=== PATIENT | female | born 1980 | race Caucasian/White ===

== ENCOUNTER 2018-10-24 17:10 | Inpatient (IN) | payer OTHER ==
[~2018-10-24] VITALS: Ht 152.4 cm; Wt 59.9 kg
[~2018-10-24 17:10] MED LIST: CLIN300C11 PO; HYDR-523 PO; METR250T PO
[2018-10-24] MEDS ORDERED: ACETAMINOPHEN 325MG TABLET PO ONE (23:45)
[2018-10-25 00:39] LABS: BASOPHILS % 0.5 % (0.0-2.0); LYMPHOCYTES % 24.5 % (20.0-50.0); MEAN CORPUSCULAR HEMOGLOBIN 20.9 pg (28.0-32.0); MEAN CORPUSCULAR VOLUME 67.8 fL (81.0-99.0); MEAN PLATELET VOLUME 7.4 fl (7.4-10.4); MONOCYTES % 8.7 % (2.0-8.0); NEUTROPHILS % 65.3 % (40.0-76.0); PLATELET 443 x1000/uL (130-400); RED BLOOD CELL COUNT 2.69 mill/uL (4.2-5.4); RED CELL DISTRIBUTION WIDTH 18.6 % (11.6-14.6)
[2018-10-25 00:48] LABS: HEMOGLOBIN. 5.6 g/dL (12.0-16.0)
[2018-10-25 00:49] LABS: HEMATOCRIT. 18.3 % (36.0-48.0); PLATELET ESTIMATE NORMAL
[2018-10-25 01:14] LABS: CHLORIDE 108 mEq/L (98-107)
[2018-10-25 01:28] LABS: HCG SCREEN NEGATIVE
[2018-10-25] MEDS ORDERED: ONDANSETRON HCL 4MG/2ML INJ IV ONE (02:30)
[2018-10-25 10:00] VITALS: BP 105/64
[2018-10-25 10:05] LABS: HEMATOCRIT 22.3 % (36.0-48.0); HEMOGLOBIN 7.2 g/dL (12.0-16.0); MEAN CORPUSCULAR HEMOGLOBIN 23.2 pg (28.0-32.0); MEAN CORPUSCULAR VOLUME 72.1 fL (81.0-99.0); PLATELET 414 x1000/uL (130-400); RED BLOOD CELL COUNT 3.09 mill/uL (4.2-5.4); RED CELL DISTRIBUTION WIDTH 21.4 % (11.6-14.6)
[2018-10-25] MEDS ORDERED: ACETAMINOPHEN 325MG TABLET PO PRN (11:00)
[2018-10-25] MEDS ORDERED: HYDROCODONE/ACETAMINOPHEN 5/325MG TABLET PO PRN (11:00)
[2018-10-25] MEDS ORDERED: ONDANSETRON HCL 4MG/2ML INJ IV PRN (11:00)
[2018-10-25] MEDS ORDERED: IPRATROPIUM/ALBUTEROL 0.5-3(2.5)MG/3ML NEB INH PRN (11:00)
[2018-10-25] MEDS ORDERED: CLONIDINE 0.1MG TABLET PO PRN (11:00)
[2018-10-25] MEDS ORDERED: DOCUSATE SODIUM 100MG CAPSULE PO PRN (11:00)
[2018-10-25 12:00] VITALS: BP 105/64
[2018-10-25 16:00] VITALS: BP 98/65
[2018-10-25] MEDS ORDERED: DIPHENHYDRAMINE 50MG/ML VIAL IV PRN (17:00)
[2018-10-25 17:52] LABS: PROTHROMBIN TIME 10.2 sec (9.1-11.1)
[2018-10-25 18:21] LABS: TOTAL IRON BINDING CAPACITY 376 ug/dL (250-450)
[2018-10-25 18:57] LABS: FOLIC ACID (FOLATE) SERUM >20 ng/mL ng/mL (>5.38)
[2018-10-25 19:09] LABS: VITAMIN B12 SERUM 544 pg/mL (211-911)
[2018-10-25 19:26] LABS: FERRITIN < 5 ng/mL (10-291)
[2018-10-25 20:00] VITALS: BP 104/68
[2018-10-25] MEDS ORDERED: BENZONATATE 100MG CAPSULE PO PRN (21:15)
[2018-10-26] VITALS (8 sets, daily range): BP systolic 92–119; BP diastolic 61–84
[2018-10-26] MEDS ORDERED: TRAMADOL 50MG TABLET PO PRN (09:30)
[2018-10-26 10:45] LABS: BASOPHILS % 0.8 % (0.0-2.0); EOSINOPHILS % 0.7 % (0.0-5.0); HEMATOCRIT. 26.7 % (36.0-48.0); HEMOGLOBIN. 8.7 g/dL (12.0-16.0); LYMPHOCYTES % 23.3 % (20.0-50.0); MEAN CORPUSCULAR HEMOGLOBIN 24.7 pg (28.0-32.0); MEAN CORPUSCULAR VOLUME 75.6 fL (81.0-99.0); MEAN PLATELET VOLUME 7.7 fl (7.4-10.4); MONOCYTES % 6.1 % (2.0-8.0); NEUTROPHILS % 69.1 % (40.0-76.0); PLATELET 420 x1000/uL (130-400); RED BLOOD CELL COUNT 3.53 mill/uL (4.2-5.4); RED CELL DISTRIBUTION WIDTH 23.6 % (11.6-14.6)
[2018-10-26 10:57] LABS: CHLORIDE 111 mEq/L (98-107)
[2018-10-26] MEDS ORDERED: ACET-2178 PO (12:35)
[2018-10-26] MEDS ORDERED: FERR325T6 MT (12:35)
[2018-10-26] MEDS ORDERED: TRAM50TA3 PO (12:35)
[2018-10-26 14:52] LABS: PLATELET ESTIMATE SLIGHTLY INCREASED
== END 2018-10-26 15:00 | disposition home or self-care (01) | DRG 532 ==
LOC: ER 17:10 → 6EST 10-25 01:37 → CANRESERV 10-25 07:50 → ENRESERV 10-25 07:50
PROVIDERS: ADMIT Internal Medicine; ATTEND Internal Medicine
PROC: 30233N1 Transfusion of Nonautologous Red Blood Cells into Peripheral Vein, Percutaneous Approach (ICD-10-PCS; principal; 2018-10-25)
DX: N93.8 Other specified abnormal uterine and vaginal bleeding (principal); E44.1 Mild protein-calorie malnutrition; E87.8 Other disorders of electrolyte and fluid balance, not elsewhere classified; D25.9 Leiomyoma of uterus, unspecified; D64.9 Anemia, unspecified; N93.9 Abnormal uterine and vaginal bleeding, unspecified; F17.200 Nicotine dependence, unspecified, uncomplicated; Z90.49 Acquired absence of other specified parts of digestive tract; Z98.891 History of uterine scar from previous surgery; Z88.6 Allergy status to analgesic agent; E83.51 Hypocalcemia
CPT/HCPCS: 36415; 36430; 71045; 76830; 76856; 80048; 82607; 82728; 82746; 83540; 83550; 84702; 84703; 85027; 86850; 86900; 86920; 93005; 99285; J7040; P9016

== ENCOUNTER 2019-09-25 02:28 | Inpatient (IN) | payer OTHER ==
[~2019-09-25] VITALS: Ht 162.6 cm; Wt 66.0 kg
[~2019-09-25 02:28] MED LIST changes: -CLIN300C11 PO; +FERR325T6 MT; -METR250T PO; +TOPUD PO; +TRAM50TA3 PO
[2019-09-25] MEDS: LACTATED RINGERS 1,000 ML IV SCH ×3 (03:00→18:53)
[2019-09-25 04:20] LABS: BASOPHILS % 0.3 % (0.0-2.0); EOSINOPHILS % 0.5 % (0.0-5.0); HEMATOCRIT. 28.9 % (36.0-48.0); HEMOGLOBIN. 9.6 g/dL (12.0-16.0); LYMPHOCYTES % 15.1 % (20.0-50.0); MEAN CORPUSCULAR HEMOGLOBIN 25.5 pg (28.0-32.0); MEAN CORPUSCULAR VOLUME 76.7 fL (81.0-99.0); MEAN PLATELET VOLUME 7.7 fl (7.4-10.4); MONOCYTES % 5.7 % (2.0-8.0); NEUTROPHILS % 78.4 % (40.0-76.0); PLATELET 341 x1000/uL (130-400); RED BLOOD CELL COUNT 3.78 mill/uL (4.2-5.4); RED CELL DISTRIBUTION WIDTH 18.9 % (11.6-14.6)
[2019-09-25 04:28] LABS: CHLORIDE 111 mEq/L (98-107)
[2019-09-25 04:36] LABS: CLARITY URINE HAZY (CLEAR); COLOR URINE YELLOW (YELLOW); KETONES URINE 1+ (NEGATIVE); PH URINE 5.5 (4.5-8.0); PROTEIN URINE TRACE (NEGATIVE); SPECIFIC GRAVITY URINE 1.023 (1.005-1.030)
[2019-09-25 04:37] LABS: LEUKOCYTE ESTERASE URINE TRACE (NEGATIVE); NITRITE URINE POSITIVE (NEGATIVE); OCCULT BLOOD URINE NEGATIVE (NEGATIVE); UROBILINOGEN URINE 0.2 E.U./dL (0.2-1.0)
[2019-09-25 04:51] LABS: *BARBITURATES SCREEN URINE NEGATIVE (NEGATIVE); *BENZODIAZEPINES SCREEN URINE NEGATIVE (NEGATIVE); *COCAINE SCREEN URINE NEGATIVE (NEGATIVE); METHADONE URINE SCREEN NEGATIVE (NEGATIVE)
[2019-09-25 04:52] LABS: OPIATES URINE SCREEN NEGATIVE (NEGATIVE); PHENCYCLIDINE URINE SCREEN NEGATIVE (NEGATIVE)
[2019-09-25 05:10] LABS: *AMPHETAMINES SCREEN URINE PRESUMTIVE POSITIVE (NEGATIVE); CANNABINOID URINE SCREEN PRESUMTIVE POSITIVE (NEGATIVE)
[2019-09-25 05:11] LABS: B-HCG QUANTITATIVE 18763 mIU/mL (<3)
[2019-09-25] MEDS ORDERED: LACTATED RINGERS 1,000 ML IV SCH ×2 (06:10→08:07)
[2019-09-25 08:06] LABS: HEPATITIS B SURFACE ANTIGEN NEGATIVE
[2019-09-25] MEDS ORDERED: DEXT 5%/LR + PITOCIN 20UNITS/L 1,000 ML IV SCH (08:07)
[2019-09-25] MEDS ORDERED: BUTORPHANOL TARTRATE 2 MG/ML VIAL IV PRN (08:15)
[2019-09-25] MEDS ORDERED: METHYLERGONOVINE MALEATE 0.2 MG/ML IM PRN (08:15)
[2019-09-25] MEDS ORDERED: CARBOPROST TROMETHAMINE 250 MCG/ML AMPUL IM PRN (08:15)
[2019-09-25] MEDS ORDERED: ACETAMINOPHEN 500MG TABLET PO NR (10:00)
[2019-09-25] MEDS ORDERED: ACETAMINOPHEN 500MG TABLET PO ONE (10:00)
[2019-09-25] MEDS: AMPICILLIN 2,000 MG in SODIUM CHLORIDE 0.9% 100 ML IV SCH ×2 (14:06→19:58)
[2019-09-25] MEDS: ACETAMINOPHEN 500MG TABLET PO NR ×2 (15:35→19:59)
[2019-09-26] MEDS: AMPICILLIN 2,000 MG in SODIUM CHLORIDE 0.9% 100 ML IV SCH ×5 (01:00→22:18)
[2019-09-26] MEDS: LACTATED RINGERS 1,000 ML IV SCH ×2 (03:00→20:56)
[2019-09-26] MEDS: ACETAMINOPHEN 500MG TABLET PO PRN ×2 (10:09→20:57)
[2019-09-26] MEDS: AZITHROMYCIN 500 MG in DEXT 5% WATER 250 ML IV SCH (21:01)
[2019-09-27] MEDS: AMPICILLIN 2,000 MG in SODIUM CHLORIDE 0.9% 100 ML IV SCH ×4 (04:27→22:00)
[2019-09-27] MEDS: LACTATED RINGERS 1,000 ML IV SCH ×2 (08:00→18:00)
[2019-09-27 09:12] LABS: BASOPHILS % 0.3 % (0.0-2.0); EOSINOPHILS % 0.4 % (0.0-5.0); HEMATOCRIT. 24.9 % (36.0-48.0); HEMOGLOBIN. 8.3 g/dL (12.0-16.0); LYMPHOCYTES % 11.8 % (20.0-50.0); MEAN CORPUSCULAR HEMOGLOBIN 25.7 pg (28.0-32.0); MEAN CORPUSCULAR VOLUME 77.4 fL (81.0-99.0); MEAN PLATELET VOLUME 8.1 fl (7.4-10.4); MONOCYTES % 4.9 % (2.0-8.0); NEUTROPHILS % 82.6 % (40.0-76.0); PLATELET 285 x1000/uL (130-400); RED BLOOD CELL COUNT 3.22 mill/uL (4.2-5.4); RED CELL DISTRIBUTION WIDTH 18.6 % (11.6-14.6)
[2019-09-27] MEDS: ACETAMINOPHEN 500MG TABLET PO PRN (09:32)
[2019-09-27] MEDS: AZITHROMYCIN 500 MG in DEXT 5% WATER 250 ML IV SCH (21:09)
[2019-09-28] MEDS: LACTATED RINGERS 1,000 ML IV SCH (02:48)
[2019-09-28] MEDS: AMPICILLIN 2,000 MG in SODIUM CHLORIDE 0.9% 100 ML IV SCH (10:05)
[2019-09-28] MEDS: PRENATAL VIT/FE FUMARATE/FA TABLET PO SCH (10:12)
[2019-09-28] MEDS: FERROUS SULFATE 325MG TABLET PO SCH ×3 (10:12→17:21)
[2019-09-28] MEDS: AMOXICILLIN 250MG CAPSULE PO SCH ×2 (15:34→21:35)
[2019-09-29] MEDS: AMOXICILLIN 250MG CAPSULE PO SCH ×3 (04:26→18:07)
[2019-09-29] MEDS: ACETAMINOPHEN 500MG TABLET PO PRN (04:37)
[2019-09-29] MEDS: FERROUS SULFATE 325MG TABLET PO SCH ×2 (10:00→13:00)
[2019-09-29] MEDS: PRENATAL VIT/FE FUMARATE/FA TABLET PO SCH (10:00)
[2019-09-29] MEDS: AZITHROMYCIN 250 MG TABLET PO SCH (21:05)
[2019-09-30] MEDS: AMOXICILLIN 250MG CAPSULE PO SCH ×3 (02:13→17:02)
[2019-09-30] MEDS: PRENATAL VIT/FE FUMARATE/FA TABLET PO SCH (09:03)
[2019-09-30] MEDS: AZITHROMYCIN 250 MG TABLET PO SCH (09:04)
[2019-09-30] MEDS: FERROUS SULFATE 325MG TABLET PO SCH ×3 (09:04→17:02)
[2019-10-01] MEDS: AMOXICILLIN 250MG CAPSULE PO SCH ×3 (02:47→17:44)
[2019-10-01] MEDS: PRENATAL VIT/FE FUMARATE/FA TABLET PO SCH (09:37)
[2019-10-01] MEDS: FERROUS SULFATE 325MG TABLET PO SCH ×3 (09:37→17:44)
[2019-10-01] MEDS: AZITHROMYCIN 250 MG TABLET PO SCH (09:37)
[2019-10-02] MEDS: AMOXICILLIN 250MG CAPSULE PO SCH ×3 (01:23→18:30)
[2019-10-02] MEDS: AZITHROMYCIN 250 MG TABLET PO SCH (09:44)
[2019-10-02] MEDS: PRENATAL VIT/FE FUMARATE/FA TABLET PO SCH (09:44)
[2019-10-02] MEDS: FERROUS SULFATE 325MG TABLET PO SCH ×3 (09:44→18:30)
[2019-10-03] MEDS: AMOXICILLIN 250MG CAPSULE PO SCH (02:25)
[2019-10-03 09:22] LABS: BASOPHILS % 0.3 % (0.0-2.0); EOSINOPHILS % 0.6 % (0.0-5.0); HEMATOCRIT. 31.4 % (36.0-48.0); HEMOGLOBIN. 10.3 g/dL (12.0-16.0); LYMPHOCYTES % 8.2 % (20.0-50.0); MEAN CORPUSCULAR HEMOGLOBIN 25.7 pg (28.0-32.0); MEAN CORPUSCULAR VOLUME 78.1 fL (81.0-99.0); MEAN PLATELET VOLUME 8.2 fl (7.4-10.4); MONOCYTES % 5.1 % (2.0-8.0); NEUTROPHILS % 85.8 % (40.0-76.0); PLATELET 363 x1000/uL (130-400); RED BLOOD CELL COUNT 4.01 mill/uL (4.2-5.4); RED CELL DISTRIBUTION WIDTH 19.3 % (11.6-14.6)
[2019-10-03] MEDS: FERROUS SULFATE 325MG TABLET PO SCH ×2 (09:50→14:25)
[2019-10-03] MEDS: PRENATAL VIT/FE FUMARATE/FA TABLET PO SCH (09:51)
[2019-10-04] MEDS: PRENATAL VIT/FE FUMARATE/FA TABLET PO SCH (09:58)
[2019-10-04] MEDS: FERROUS SULFATE 325MG TABLET PO SCH ×2 (09:58→13:46)
[2019-10-04] MEDS: DOCUSATE SODIUM 100MG CAPSULE PO SCH (16:45)
[2019-10-05] MEDS: FERROUS SULFATE 325MG TABLET PO SCH ×4 (09:00→17:31)
[2019-10-05] MEDS: PRENATAL VIT/FE FUMARATE/FA TABLET PO SCH (09:20)
[2019-10-05] MEDS: DOCUSATE SODIUM 100MG CAPSULE PO SCH (17:31)
[2019-10-05 23:50] LABS: HEMATOCRIT 28.7 % (36.0-48.0); HEMOGLOBIN 9.5 g/dL (12.0-16.0); MEAN CORPUSCULAR HEMOGLOBIN 25.8 pg (28.0-32.0); MEAN CORPUSCULAR VOLUME 77.8 fL (81.0-99.0); PLATELET 338 x1000/uL (130-400); RED BLOOD CELL COUNT 3.69 mill/uL (4.2-5.4)
[2019-10-06 00:06] LABS: CLARITY URINE CLEAR (CLEAR); COLOR URINE YELLOW (YELLOW); KETONES URINE NEGATIVE (NEGATIVE); LEUKOCYTE ESTERASE URINE 3+ (NEGATIVE); NITRITE URINE NEGATIVE (NEGATIVE); OCCULT BLOOD URINE NEGATIVE (NEGATIVE); PROTEIN URINE NEGATIVE (NEGATIVE); SPECIFIC GRAVITY URINE 1.008 (1.005-1.030)
[2019-10-06] MEDS: DOCUSATE SODIUM 100MG CAPSULE PO SCH ×3 (09:00→20:57)
[2019-10-06] MEDS: FERROUS SULFATE 325MG TABLET PO SCH ×3 (09:22→17:20)
[2019-10-06] MEDS: LACTATED RINGERS 1,000 ML IV SCH (14:03)
[2019-10-06] MEDS ORDERED: LACTATED RINGERS 1,000 ML IV SCH ×2 (14:30→18:30)
[2019-10-06] MEDS: ACETAMINOPHEN 500MG TABLET PO PRN ×3 (16:42→22:25)
[2019-10-07] MEDS: PRENATAL VIT/FE FUMARATE/FA TABLET PO SCH (09:10)
[2019-10-07] MEDS: ACETAMINOPHEN 500MG TABLET PO PRN (09:12)
[2019-10-07] MEDS: DOCUSATE SODIUM 100MG CAPSULE PO SCH (17:20)
[2019-10-07] MEDS: FERROUS SULFATE 325MG TABLET PO SCH (19:34)
[2019-10-08] MEDS ORDERED: LANOLIN OINT 7GM TUBE TOP PRN (02:15)
[2019-10-08] MEDS ORDERED: BISACODYL 10MG SUPP PR PRN (02:15)
[2019-10-08] MEDS ORDERED: GLYCERIN/WITCH HAZEL LEAF MEDICATED PAD TOP PRN (02:15)
[2019-10-08] MEDS ORDERED: ACETAMINOPHEN WITH CODEINE 300/30MG TABLET PO PRN ×2 (02:15)
[2019-10-08] MEDS ORDERED: BENZOCAINE/LANOLIN/ALOE VERA SPRAY TOP PRN (02:15)
[2019-10-08] MEDS ORDERED: RHO(D) IMMUNE GLOBULIN 300 MCG/SYR IM PRN (02:15)
[2019-10-08] MEDS ORDERED: HEMORRHOIDAL SUPP PR PRN (02:15)
[2019-10-08] MEDS: IBUPROFEN 400MG TABLET PO PRN ×2 (02:33→04:50)
[2019-10-08] MEDS: DEXT 5%/LR + PITOCIN 20UNITS/L 1,000 ML IV SCH ×2 (02:37→03:59)
[2019-10-08 04:30] VITALS: BP 110/72
[2019-10-08 08:30] VITALS: BP 97/62
[2019-10-08] MEDS ORDERED: PRENATAL VIT/FE FUMARATE/FA TABLET PO SCH (09:00)
[2019-10-08] MEDS: IBUPROFEN 800MG TABLET PO PRN ×2 (15:10→22:52)
[2019-10-08 15:25] VITALS: BP 110/77
[2019-10-08] MEDS ORDERED: AMPICILLIN IV SCH (19:00)
[2019-10-08] MEDS ORDERED: SODIUM CHLORIDE 0.9% IV SCH (19:00)
[2019-10-08] MEDS ORDERED: DOCUSATE SODIUM 100MG CAPSULE PO SCH (21:00)
[2019-10-08] MEDS: MAGNESIUM/ALUMINUM HYDROXIDE/SIMETHICONE 30ML UDC PO SCH (21:00)
[2019-10-08] MEDS: SIMETHICONE 80MG TABLET CHEW PO SCH (21:00)
[2019-10-08] MEDS: GENTAMICIN 100MG PREMIX 50 ML IV SCH (21:22)
[2019-10-08] MEDS: LACTATED RINGERS 1,000 ML IV SCH (21:34)
[2019-10-08] MEDS: AMPICILLIN 2,000 MG in SODIUM CHLORIDE 0.9% 100 ML IV SCH (22:37)
[2019-10-08] MEDS: FERROUS SULFATE 325MG TABLET PO SCH (22:53)
[2019-10-08] MEDS: DOCUSATE SODIUM 100MG CAPSULE PO SCH (22:53)
[2019-10-09] MEDS: GENTAMICIN 100MG PREMIX 50 ML IV SCH ×3 (05:00→21:25)
[2019-10-09] MEDS: AMPICILLIN 2,000 MG in SODIUM CHLORIDE 0.9% 100 ML IV SCH ×4 (05:16→22:11)
[2019-10-09 05:17] VITALS: BP 104/66
[2019-10-09] MEDS: IBUPROFEN 800MG TABLET PO PRN ×3 (06:14→22:08)
[2019-10-09 07:37] LABS: BASOPHILS % 0.4 % (0.0-2.0); EOSINOPHILS % 1.9 % (0.0-5.0); HEMATOCRIT. 23.7 % (36.0-48.0); HEMOGLOBIN. 7.8 g/dL (12.0-16.0); LYMPHOCYTES % 22.9 % (20.0-50.0); MEAN CORPUSCULAR HEMOGLOBIN 26.2 pg (28.0-32.0); MEAN CORPUSCULAR VOLUME 79.6 fL (81.0-99.0); MEAN PLATELET VOLUME 8.2 fl (7.4-10.4); MONOCYTES % 7.6 % (2.0-8.0); NEUTROPHILS % 67.2 % (40.0-76.0); PLATELET 300 x1000/uL (130-400); RED BLOOD CELL COUNT 2.98 mill/uL (4.2-5.4); RED CELL DISTRIBUTION WIDTH 20.4 % (11.6-14.6)
[2019-10-09 07:39] LABS: CHLORIDE 110 mEq/L (98-107)
[2019-10-09 08:00] VITALS: BP 107/67
[2019-10-09] MEDS: MAGNESIUM/ALUMINUM HYDROXIDE/SIMETHICONE 30ML UDC PO SCH ×4 (08:43→21:24)
[2019-10-09] MEDS: SIMETHICONE 80MG TABLET CHEW PO SCH ×4 (08:44→21:25)
[2019-10-09] MEDS: PRENATAL VIT/FE FUMARATE/FA TABLET PO SCH (08:44)
[2019-10-09] MEDS: FERROUS SULFATE 325MG TABLET PO SCH ×2 (08:44→17:34)
[2019-10-09] MEDS: LACTATED RINGERS 1,000 ML IV SCH (13:14)
[2019-10-09 16:00] VITALS: BP 90/50
[2019-10-09 19:30] VITALS: BP 115/81
[2019-10-09] MEDS: DOCUSATE SODIUM 100MG CAPSULE PO SCH (21:24)
[2019-10-10 04:00] VITALS: BP 98/62
[2019-10-10] MEDS: AMPICILLIN 2,000 MG in SODIUM CHLORIDE 0.9% 100 ML IV SCH (04:40)
[2019-10-10] MEDS: GENTAMICIN 100MG PREMIX 50 ML IV SCH (05:15)
[2019-10-10 08:30] VITALS: BP 114/76
[2019-10-10] MEDS ORDERED: IBUP-2030 PO (10:20)
[2019-10-10] MEDS: FERROUS SULFATE 325MG TABLET PO SCH (10:32)
[2019-10-10] MEDS: PRENATAL VIT/FE FUMARATE/FA TABLET PO SCH (10:33)
[2019-10-10] MEDS: IBUPROFEN 800MG TABLET PO PRN (10:33)
== END 2019-10-10 12:10 | disposition home or self-care (01) | DRG 560 ==
LOC: ER 02:28 → OBSVTOIN 05:45 → 8 EST LDRP 05:45 → 8 EST A/PP 13:26
PROVIDERS: ADMIT Specialist; ATTEND Specialist
PROC: 10E0XZZ Delivery of Products of Conception, External Approach (ICD-10-PCS; principal; 2019-10-08)
DX: O42.912 Preterm premature rupture of membranes, unspecified as to length of time between rupture and onset of labor, second trimester (principal); O41.1220 Chorioamnionitis, second trimester, not applicable or unspecified; O41.02X0 Oligohydramnios, second trimester, not applicable or unspecified; Z37.1 Single stillbirth; F16.10 Hallucinogen abuse, uncomplicated; O99.324 Drug use complicating childbirth; O32.1XX0 Maternal care for breech presentation, not applicable or unspecified; F15.10 Other stimulant abuse, uncomplicated; F17.210 Nicotine dependence, cigarettes, uncomplicated; F12.10 Cannabis abuse, uncomplicated; O99.02 Anemia complicating childbirth; O99.334 Smoking (tobacco) complicating childbirth; D72.829 Elevated white blood cell count, unspecified; O76 Abnormality in fetal heart rate and rhythm complicating labor and delivery; O99.12 Other diseases of the blood and blood-forming organs and certain disorders involving the immune mechanism complicating childbirth; Z88.5 Allergy status to narcotic agent; Z90.49 Acquired absence of other specified parts of digestive tract; Z3A.23 23 weeks gestation of pregnancy
CPT/HCPCS: 36415; 76805; 80048; 80170; 80305; 81003; 84702; 85027; 86592; 86703; 86762; 86850; 86900; 86920; 87340; 88307; 99281; 99285; J0290; J0456; J1580; J2590; J7050; J7060; J7120